=== PATIENT | male | born 1965 | race Caucasian/White ===

== ENCOUNTER → 2020-12-25 | Outpatient (CLI) | payer BC ==
[2020-12-25 23:20] LABS: ALBUMIN 3.7 g/dL (3.4-5.0); CREATININE 2.4 mg/dL (0.7-1.3); GFR 28.4; MAGNESIUM 1.9 mg/dL (1.8-2.4); POTASSIUM 4.3 mmol/L (3.5-5.1); TOTAL BILIRUBIN 0.7 mg/dL (0.2-1.0); TOTAL PROTEIN 7.5 g/dL (6.4-8.2)
[2020-12-26 23:07] LABS: HEMOGLOBIN A1C 6.6 % (4.8-5.6)
[2020-12-27 11:15] LABS: C-PEPTIDE 1.9 ng/mL (1.1-4.4); INSULIN LEVEL 23.6 uIU/mL (2.6-24.9)
== END ==
LOC: LAB 07:12
PROVIDERS: ATTEND Nurse Practitioner Family
DX: E11.65 Type 2 diabetes mellitus with hyperglycemia (principal); I10 Essential (primary) hypertension; E78.2 Mixed hyperlipidemia
CPT/HCPCS: 36415; 80053; 80061; 82306; 82607; 83036; 83525; 83735; 84681